=== PATIENT | female | born 1955 | race Caucasian/White ===

== ENCOUNTER 2019-04-23 08:52 | Outpatient (CLI) | payer BC, SELFPAY ==
--- NOTE | ~2019-04-23 | XR_ITS ---
XR ankle RT min 3V DATE: 04/23/2019 09:22 INDICATION: Chronic right knee pain. Right ankle swelling. TECHNIQUE: 4 views COMPARISON: None FINDINGS: Plantar and more prominent posterior calcaneal enthesopathy. No associated erosive change o r periostitis is noted. No fracture or dislocation of the ankle or disruption of the ankle mortise is detected. No periosteal reaction or bone destruction. IMPRESSION: Calcaneal enthesopathy Reviewed, dictated and finalized at location B. IMPRESSION: Calcaneal enthesopathy
--- NOTE | ~2019-04-23 | XR_ITS ---
XR knee RT 3V DATE: 04/23/2019 09:23 INDICATION: Chronic right knee pain. Right ankle swelling. TECHNIQUE: [place], AP and lateral views COMPARISON: None FINDINGS: There is tricompartment osteoarthritis with particularly prominent periarticular spurring o f the medial femoral condyle. Moderate osteopenia. No fracture, dislocation, periosteal reaction or bone destruction or joint effusion is evident. There is chondrocalcinosis. IMPRESSION: Tricompartment osteophyte is Chondrocalcinosis Reviewed, dictated and finalized at location B.
== END 2019-04-23 08:53 | disposition home or self-care (01) ==
PROVIDERS: PCP Family Medicine; Visit Provider Family Medicine
DX: M25.561 Pain in right knee (principal)
CPT/HCPCS: 73562; 73610

== ENCOUNTER 2019-10-02 14:23 | Outpatient (CLI) | payer BC, SELFPAY ==
--- NOTE | ~2019-10-02 | MM_ITS ---
EXAMINATION: MM screening [facility] BI w [facility] HISTORY: Screening TECHNIQUE: Craniocaudal and mediolateral oblique 3-D tomosynthesis images were obtained and synthetic 2-D images were generated. CAD analysis was submitted and interpreted. COMPARISON: 05/02/2011 BREAST PARENCHYMAL COMPOSITION: There are scattered areas of fibroglandular density. FINDINGS: Bilateral breast asymmetries are stable. There is no evidence of suspicious mass, calcifica tion, or architectural distortion to suggest malignancy in either breast. There has been no suspiciou s interval change. IMPRESSION: 1. No mammographic evidence of malignancy. 2. Recommend routine screening mammography in one year. BI-RADS Category 2: Benign finding(s). Reviewed, dictated and finalized at location A.
== END 2019-10-02 14:24 | disposition home or self-care (01) ==
LOC: CHSIMG 14:24
PROVIDERS: PCP Family Medicine; Visit Provider Family Medicine
DX: Z12.31 Encounter for screening mammogram for malignant neoplasm of breast (principal)
CPT/HCPCS: 77063; 77067

== ENCOUNTER 2020-06-10 13:39 | Outpatient (CLI) | payer BC, SELFPAY ==
--- NOTE | ~2020-06-10 | XR_ITS ---
EXAMINATION: XR lumbar spine 2-3V DATE: 06/10/2020 14:04 INDICATION: Low back pain traveling down right leg. TECHNIQUE: 3 views of lumbar spine were obtained. COMPARISON: Lumbar spine radiographs 02/27/2012 FINDINGS: There is 3 degrees levocurvature of thoracolumbar lumbar spine. Vertebral body heights are normal. There is mildly decreased disc height at L1-L2. There are endplate osteophytes at most levels . There is moderate to severe facet joint osteoarthritis in lower lumbar spine. IMPRESSION: 1. Mild lumbar spondylosis. Reviewed, dictated and finalized at location A. IMPRESSION: 1. Mild lumbar spondylosis.
== END 2020-06-10 13:40 | disposition home or self-care (01) ==
LOC: CHSIMG 13:42
PROVIDERS: PCP Family Medicine; Visit Provider Nurse Practitioner Psychiatric/Mental Health
DX: M54.16 Radiculopathy, lumbar region (principal)
CPT/HCPCS: 72100

== ENCOUNTER 2022-06-20 14:19 | Outpatient (CLI) | payer BC, SELFPAY ==
--- NOTE | ~2022-06-20 | MM_ITS ---
EXAMINATION: MM screening [facility] BI w [facility] HISTORY: Screening mammogram TECHNIQUE: Craniocaudal and mediolateral oblique 3-D tomosynthesis images were obtained and synthetic 2-D images were generated. CAD analysis was submitted and interpreted. COMPARISON: 10/02/2019, 05/02/2011, 02/08/2007 BREAST PARENCHYMAL COMPOSITION: There are scattered areas of fibroglandular density. FINDINGS: No suspicious mass, calcification, or architectural distortion are identified in either [place] ast to suggest malignancy. There has been no suspicious interval change. IMPRESSION: 1. No mammographic evidence of malignancy. 2. Recommend routine screening mammography in one year. BI-RADS Category 1: Negative Reviewed, dictated and finalized at location A.
== END 2022-06-20 14:20 | disposition home or self-care (01) ==
LOC: CHSIMG 14:20
PROVIDERS: PCP Family Medicine; Visit Provider Physician Assistant
DX: Z12.31 Encounter for screening mammogram for malignant neoplasm of breast (principal)
CPT/HCPCS: 77063; 77067